=== PATIENT | female | born 1935 | race Caucasian/White ===

== ENCOUNTER 2016-10-23 15:55 | Emergency (ER) | payer MEDICARE, BC ==
[2016-10-23 16:16] VITALS: BP 141/91
--- NOTE | 2016-10-23 17:45 | UC ---
Back Pain HPI - HPI Summary HPI Summary: right shoulder pain that radiates from the spine and down the right arm. started about a week ago. has dizziness as well, worse when she lays down and if she lays on her right side. left arm is sore but it is always sore on and off. she has tried taking Tylenol. The pain comes and goes but it is worse at night. she has a history of spinal stenosis but she does not know where in her back. she assumed this pain was the same. having tight muscle in the upper right back as well [ End ] - History of Current Complaint Chief Complaint: UCBackPain Stated Complaint: BILATERAL SHOULDER/NECK/ARM PAIN Hx Obtained From: Patient ?: No Onset/Duration: Gradual Onset Timing: Constant Severity Initially: Moderate Severity Currently: Moderate Character: Sharp Aggravating: Movement Alleviating: Rest - Risk Factors AAA Risk Factors: Negative TAD Risk Factors: Negative - Allergies/Home Medications Allergies/Adverse Reactions: Allergies Allergy/AdvReac Type Severity Reaction Status Date / Time Ciprofloxacin [From Cipro] Allergy Severe unable to Verified 10/23/16 16:16 breath Home Medications: Home Medications celeCOXIB CAP* [Celebrex CAP*] 100 mg PO DAILY PRN 10/23/16 [History Confirmed 10/23/16] PMH/Surg Hx/FS Hx/Imm Hx Previously Healthy: Yes - Surgical History Surgical History: Yes Surgery Procedure, Year, and Place: Left total hip replacement 1999. Ovarian tumor removed 2006 - Social History Occupation: Retired Lives: With Family Alcohol Use: None Substance Use Type: None Smoking Status (MU): Never Smoked Tobacco - Immunization History Most Recent Tetanus Shot: Unknown Review of Systems Constitutional: Negative Skin: Negative Eyes: Negative ENT: Negative Respiratory: Negative Cardiovascular: Negative Gastrointestinal: Negative Genitourinary: Negative Motor: Negative Neurovascular: Negative Musculoskeletal: Arthralgia Neurological: Negative Psychological: Negative All Other Systems Reviewed And Are Negative: Yes Physical Exam Triage Information Reviewed: Yes Appearance: Well-Appearing, Well-Nourished, Pain Distress - mild Vital Signs: Initial Vital Signs Temp 97.6 F 10/23/16 16:06 Pulse 90 10/23/16 16:06 Resp 14 10/23/16 16:06 BP 141/91 10/23/16 16:06 Pulse Ox 100 10/23/16 16:06 Vital Signs Reviewed: Yes Eye Exam: Normal Neck: Positive: 1 Respiratory Exam: Normal Cardiovascular Exam: Normal Musculoskeletal Exam: Normal Musculoskeletal: Positive: Strength Intact, ROM Intact - FROM Both shoulders. strength UE B/L 5/5 and sensation intact, No Edema Neurological Exam: Normal Neurological: Positive: Abnormal Muscle Tone - right upper trap, Other: Psychological Exam: Normal Skin Exam: Normal Back Pain Course/Dx - Course Course Of Treatment: flexeril in the PM for muscle tightness. medrol for the radiculopathy. no red flags. no trauma or falls no weakness. to f/u with PCP for imaging. - Differential Dx/Diagnosis Differential Diagnosis/HQI/PQRI: Herniated Disc, Strain, Sprain Provider Diagnoses: cervical radiculopathy and right trap spasm Discharge - Discharge Plan Condition: Good Disposition: HOME Patient Education Materials: Cervical Radiculopathy (ED)
== END 2016-10-23 17:58 | disposition home or self-care (01) ==
LOC: UCCORT 15:55
DX: M54.12 Radiculopathy, cervical region (principal); M62.838 Other muscle spasm; Z88.1 Allergy status to other antibiotic agents; Z96.642 Presence of left artificial hip joint
CPT/HCPCS: 93005; 99212; G0463

== ENCOUNTER 2017-03-27 15:13 | Emergency (ER) | payer MEDICARE, BC ==
[2017-03-27 15:34] VITALS: BP 134/98
--- NOTE | 2017-03-27 16:12 | RAD ---
Indication: Elbow pain and injury after fall 4 views of the elbow demonstrates joint effusion with anterior fat pad sign. There likely is a fracture of the neck of the radius with slight impaction although visualization is suboptimal. Follow-up exam is suggested. IMPRESSION: Joint effusion with anterior fat pad sign. There is likely a fracture of the radial neck. Follow-up exam is suggested.
--- NOTE | 2017-03-27 16:38 | UC ---
Elbow Pain - HPI Summary HPI Summary: Fell landing on right arm about 2 hours ago pain in proximal radius - History of Current Complaint Chief Complaint: UCUpperExtremity Stated Complaint: RIGHT ARM INJURY (FALL) Time Seen by Provider: 03/27/17 15:30 Hx Obtained From: Patient ?: No Mechanism of Injury: fall Onset/Duration: Hours - 2, Traumatic, Still Present Severity Initially: Moderate Severity Currently: Moderate Pain Intensity: 4 Pain Scale Used: 0-10 Numeric Location Of Pain: Is Discrete @ - right proximal radius Character: Aching, Throbbing Aggravating Factor(s): Movement Alleviating Factor(s): Nothing Associated Signs And Symptoms: Positive: Negative - Allergies/Home Medications Allergies/Adverse Reactions: Allergies Allergy/AdvReac Type Severity Reaction Status Date / Time Ciprofloxacin [From Cipro] Allergy Severe unable to Verified 03/27/17 15:29 breath Home Medications: Home Medications Vitamin THERAPEUTIC TAB* [Theragran TAB*] 1 tab PO DAILY 03/27/17 [History Confirmed 03/27/17] PMH/Surg Hx/FS Hx/Imm Hx Previously Healthy: Yes - gait disorder - Surgical History Surgical History: Yes Surgery Procedure, Year, and Place: Left total hip replacement 1999. Ovarian tumor removed 2006 - Family History Known Family History: Positive: None - Social History Occupation: Retired Lives: With Family Alcohol Use: None Substance Use Type: None Smoking Status (MU): Never Smoked Tobacco - Immunization History Most Recent Influenza Vaccination: Not the 2016/2017 Season Most Recent Tetanus Shot: Unknown Review of Systems Constitutional: Negative Skin: Negative Eyes: Negative ENT: Negative Respiratory: Negative Cardiovascular: Negative Gastrointestinal: Negative Genitourinary: Negative Motor: Negative Neurovascular: Negative Musculoskeletal: Arthralgia - right proximal radius, pain with supination Neurological: Negative Psychological: Negative Is Patient Immunocompromised?: No All Other Systems Reviewed And Are Negative: Yes Physical Exam Triage Information Reviewed: Yes Appearance: Well-Appearing, No Pain Distress, Well-Nourished Vital Signs: Initial Vital Signs Temp 98.2 F 03/27/17 15:27 Pulse 102 03/27/17 15:27 Resp 18 03/27/17 15:27 BP 134/98 03/27/17 15:27 Pulse Ox 100 03/27/17 15:27 Vital Signs Reviewed: Yes Eye Exam: Normal Eyes: Positive: Conjunctiva Clear ENT Exam: Normal ENT: Positive: Normal ENT inspection, Hearing grossly normal, Pharynx normal. Negative: Trismus, Muffled voice, Hoarse voice Dental Exam: Normal Neck exam: Normal Neck: Positive: Supple, Nontender Respiratory Exam: Normal Respiratory: Positive: No respiratory distress, No accessory muscle use Cardiovascular Exam: Normal Cardiovascular: Positive: RRR, Pulses Normal, Brisk Capillary Refill Musculoskeletal Exam: Other Musculoskeletal: Positive: Strength Intact, No Edema, ROM Limited @ - pain with supination Neurological Exam: Normal Neurological: Positive: Alert, Muscle Tone Normal Psychological Exam: Normal Skin Exam: Normal Diagnostics - Radiology No standard instances Xray Interpretation: Positive (See Comments) - Positive anterior sail sign Radiology Interpretation Completed By: ED Physician, Radiologist Elbow Pain Course/Dx - Course Course Of Treatment: kendell weller follow with Dr. Wong - Differential Dx/Diagnosis Provider Diagnoses: Non displaced RIght radial head fracture Discharge - Discharge Plan Condition: Stable Disposition: HOME Patient Education Materials: Elbow Fracture (ED), RICE Therapy (ED) Referrals: Frantz Liriano MD [Medical Doctor] - 3 Days Jeff Sparrow MD [Primary Care Provider] -
== END 2017-03-27 16:32 | disposition home or self-care (01) ==
LOC: UCCORT 15:13
DX: S52.124A Nondisplaced fracture of head of right radius, initial encounter for closed fracture (principal); W19.XXXA Unspecified fall, initial encounter; Y93.9 Activity, unspecified; Y92.9 Unspecified place or not applicable; Y99.9 Unspecified external cause status
CPT/HCPCS: 25600; 99211; G0463

== ENCOUNTER 2018-08-05 14:46 | Emergency (ER) | payer MEDICARE, BC ==
[2018-08-05] MEDS ORDERED: DOXYcycline CAP(*) 100 MG PO ONE (15:15)
[2018-08-05 15:18] VITALS: BP 154/84
--- NOTE | 2018-08-05 15:20 | UC ---
Skin Complaint HPI - HPI Summary HPI Summary: Patient found tick on back, not sure how long it has been there - History of Current Complaint Time Seen by Provider: 08/05/18 15:16 Stated Complaint: TICK BITE Hx Obtained From: Patient ?: No Onset/Duration: Sudden Onset, Resolved Skin Exposure Onset/Duration: Days Ago - unk Timing: Constant Current Severity: None Location: Discrete - Allergy/Home Medications Allergies/Adverse Reactions: Allergies Allergy/AdvReac Type Severity Reaction Status Date / Time ciprofloxacin Allergy Severe Unable to Verified 08/05/18 14:58 breathe Home Medications: Home Medications Acetaminophen [Acetaminophen Extra Strength] 1,000 mg PO ONCE PRN 08/05/18 [ History Confirmed 08/05/18] PMH/Surg Hx/FS Hx/Imm Hx Previously Healthy: Yes - Surgical History Surgical History: Yes Surgery Procedure, Year, and Place: Left total hip replacement 1999. Ovarian tumor removed 2006 - Family History Known Family History: Positive: Hypertension - Social History Alcohol Use: None Substance Use Type: None Smoking Status (MU): Never Smoked Tobacco - Immunization History Most Recent Influenza Vaccination: Not the 2016/2017 Season Most Recent Tetanus Shot: Unknown Review of Systems All Other Systems Reviewed And Are Negative: Yes Skin: Positive: Other - tick bite, Is Patient Immunocompromised?: No Physical Exam Triage Information Reviewed: Yes Appearance: Well-Appearing, No Pain Distress, Well-Nourished Vital Signs Reviewed: Yes Eye Exam: Normal ENT Exam: Normal Dental Exam: Normal Neck exam: Normal Respiratory Exam: Normal Cardiovascular Exam: Normal Abdominal Exam: Normal Musculoskeletal Exam: Normal Neurological Exam: Normal Psychological Exam: Normal Skin: Positive: Significant Lesion(s) - 4 cm diameter area of erythema surrounding bite Course/Dx - Course Course Of Treatment: hx obtained, exam performed ,meds reviewed, treated with prophylactic doxycyline and recommend follow up with onset of any symptoms. - Differential Diagnoses - Skin Complaint Differential Diagnoses: Tick Born Illness - Diagnoses Provider Diagnosis: Tick bite Discharge - Sign-Out/Discharge Documenting (check all that apply): Patient Departure All imaging exams completed and their final reports reviewed: No Studies - Discharge Plan Condition: Stable Disposition: HOME Patient Education Materials: Lyme Disease (ED), Tick Bite (ED) Referrals: Jeff Sparrow MD [Primary Care Provider] - Additional Instructions: 1. take the medication with your next meal 2. Watch for any symptoms and follow up with your priamry for further testing as needed. - Billing Disposition and Condition Condition: STABLE Disposition: Home
== END 2018-08-05 15:30 | disposition home or self-care (01) ==
LOC: UCCORT 14:46
DX: S20.469A Insect bite (nonvenomous) of unspecified back wall of thorax, initial encounter (principal); W57.XXXA Bitten or stung by nonvenomous insect and other nonvenomous arthropods, initial encounter; Z88.1 Allergy status to other antibiotic agents
CPT/HCPCS: 99212; A9270-GY; G0463

== ENCOUNTER 2018-08-18 10:19 | Emergency (ER) | payer MEDICARE, BC ==
[2018-08-18 10:55] VITALS: BP 144/69
--- NOTE | 2018-08-18 11:19 | UC ---
General HPI - HPI Summary HPI Summary: Pleasant 83 yo female c/o tick attached to abd wall. Wants us to get it off. Has tried at home but to no avail. She is concerned d/t had a tick bite last week. And also was rx'd for 3 weeks for lyme dz a couple years ago. Would like to be checked (blood test) for lyme again. No fever / chills. tet utd. No gi issues. No new rash. No gu issues. No h/a. - History of Current Complaint Chief Complaint: UCBiteInjury Stated Complaint: SKIN CONCERN Hx Obtained From: Patient, Family/Manager Underwriting Pain Intensity: 0 - Allergy/Home Medications Allergies/Adverse Reactions: Allergies Allergy/AdvReac Type Severity Reaction Status Date / Time ciprofloxacin Allergy Severe Unable to Verified 08/18/18 10:51 breathe PMH/Surg Hx/FS Hx/Imm Hx Previously Healthy: Yes - see hpi and rn notes - Surgical History Surgical History: Yes Surgery Procedure, Year, and Place: Left total hip replacement 1999. Ovarian tumor removed 2006 - Family History Known Family History: Positive: Hypertension - Social History Alcohol Use: None Substance Use Type: None Smoking Status (MU): Never Smoked Tobacco - Immunization History Most Recent Influenza Vaccination: Not the Season Most Recent Tetanus Shot: 04/21/12 Review of Systems All Other Systems Reviewed And Are Negative: Yes Constitutional: Positive: Negative Skin: Positive: Other - see hpi Eyes: Positive: Other - see hpi ENT: Positive: Other - see hpi Respiratory: Positive: Other - see hpi Cardiovascular: Positive: Other - see hpi Gastrointestinal: Positive: Other - see hpi Motor: Positive: Other - see hpi Neurovascular: Positive: Other - see hpi Musculoskeletal: Positive: Other: - see hpi Neurological: Positive: Other - see hpi Psychological: Positive: Negative Is Patient Immunocompromised?: No Physical Exam Triage Information Reviewed: Yes Appearance: Well-Appearing, Well-Nourished Vital Signs: Initial Vital Signs Temp 97.3 F 08/18/18 10:49 Pulse 62 08/18/18 10:49 Resp 16 08/18/18 10:49 BP 144/69 08/18/18 10:49 Pulse Ox 100 08/18/18 10:49 Vital Signs Reviewed: Yes Eye Exam: Normal - grossly normal ENT Exam: Normal - grossly normal Neck exam: Normal - no co Respiratory Exam: Normal - rr normal, no dyspnea, no tachypnea Cardiovascular Exam: Normal - hr normal, nondiaphoretic Abdominal Exam: Normal Abdomen Description: Positive: Nontender Musculoskeletal Exam: Normal - moves x 4 ext's gait slow steady Neurological Exam: Normal - grossly nonfocal Psychological Exam: Normal - conversing easily and appropriately. nad Skin Exam: Other - no visible or reported rash. there is a tick lodged in abd wall, with redness peritick approx 1+cm. Not hot, not blanching. Course/Dx - Course Course Of Treatment: EMLA cream applied. Tick removed with forceps. Reviewed coa /tx plan. Questions as posed answered to the best of my ability. F/u PCP encouraged. - Diagnoses Provider Diagnosis: Tick bite Discharge - Sign-Out/Discharge Documenting (check all that apply): Patient Departure All imaging exams completed and their final reports reviewed: No Studies - Discharge Plan Condition: Stable Disposition: HOME Patient Education Materials: Tick Bite (ED) Referrals: Jeff Sparrow MD [Primary Care Provider] - Additional Instructions: Follow up with Dr. Sparrow - call for appointment next 1-2 weeks. Seek medical attention for any problems in the meantime. - Billing Disposition and Condition Condition: STABLE Disposition: Home
[2018-08-18] MEDS ORDERED: Lidocaine 2.5%/Prilocain 2.5%* 5 GM TUBE TOPICAL ONE (11:24)
--- NOTE | 2018-08-21 07:26 | ED ---
Progress - Progress Note Progress Note: Lyme IGG and IGM came back equivocal, and per lab report has been sent to reference lab for testing. Please arrange for patient to follow up with her primary care, and Dr Jose Angel RODAS for further care. Course/Dx - Diagnoses Provider Diagnoses: Tick bite Discharge - Sign-Out/Discharge Documenting (check all that apply): Patient Departure All imaging exams completed and their final reports reviewed: No Studies - Discharge Plan Condition: Stable Disposition: HOME Patient Education Materials: Tick Bite (ED) Referrals: Jeff Sparrow MD [Primary Care Provider] - Additional Instructions: Follow up with Dr. Sparrow - call for appointment next 1-2 weeks. Seek medical attention for any problems in the meantime. - Billing Disposition and Condition Condition: STABLE Disposition: Home
== END 2018-08-18 12:05 | disposition home or self-care (01) ==
LOC: UCCORT 10:19
DX: S30.861A Insect bite (nonvenomous) of abdominal wall, initial encounter (principal); Z88.1 Allergy status to other antibiotic agents; W57.XXXA Bitten or stung by nonvenomous insect and other nonvenomous arthropods, initial encounter; Y92.9 Unspecified place or not applicable
CPT/HCPCS: 36415; 86617; 86618; 99211; A9270-GY; G0463